=== PATIENT | female | born 1990 | race Caucasian/White ===

== ENCOUNTER 2020-10-22 13:55 | Emergency (ER) | payer SELFPAY ==
[2020-10-22 14:05] VITALS: BP 120/88; PULSE 105; RESP 18; TEMP 36.6; O2SAT 100; BMI 19.3
[2020-10-22 14:21] VITALS: BP 115/88; PULSE 105; RESP 18; O2SAT 98
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
[2020-10-22] MEDS: HYDROcodone-acetaminophen 7.5-325 mg Tablet 1 TAB PO (15:35)
[2020-10-22] MEDS: diazePAM 5 mg Tablet PO (15:35)
[2020-10-22 16:38] VITALS: BP 145/98; PULSE 96; RESP 16; O2SAT 99
== END 2020-10-22 16:38 | disposition home or self-care (01) ==
PROVIDERS: Emergency Provider Family Medicine
DX: S13.4XXA Sprain of ligaments of cervical spine, initial encounter (principal); S13.9XXA Sprain of joints and ligaments of unspecified parts of neck, initial encounter; V49.40XA Driver injured in collision with unspecified motor vehicles in traffic accident, initial encounter
CPT/HCPCS: 70450; 72125; 99283

== ENCOUNTER 2020-10-23 11:33 | Emergency (ER) | payer SELFPAY ==
[2020-10-23 11:44] VITALS: BP 121/81; PULSE 101; RESP 14; TEMP 36.6; O2SAT 98; BMI 19.0
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
[2020-10-23 12:14] VITALS: BP 111/69; PULSE 84; RESP 16; O2SAT 99
[2020-10-23] MEDS: ketorolac 60 mg/2 mL INJ IM (12:19)
[2020-10-23] MEDS: ondansetron 2 mg/ML SDV 2 mL 4 MG IM (12:19)
[2020-10-23 12:58] VITALS: BP 105/64; PULSE 87; RESP 16; O2SAT 98
== END 2020-10-23 13:01 | disposition home or self-care (01) ==
PROVIDERS: Emergency Provider Physician Assistant
DX: S06.0X0A Concussion without loss of consciousness, initial encounter (principal); S13.9XXA Sprain of joints and ligaments of unspecified parts of neck, initial encounter; V89.2XXA Person injured in unspecified motor-vehicle accident, traffic, initial encounter
CPT/HCPCS: 96372; 99283; J1885; J2405